=== PATIENT | female | born 1985 | race Caucasian/White ===

== ENCOUNTER 2017-10-24 12:19 | Emergency (ER) | payer OTHER ==
[~2017-10-24] VITALS: Ht 165.1 cm; Wt 62.0 kg
[2017-10-24 12:22] VITALS: BP 105/60
[2017-10-24] MEDS ORDERED: IBUPROFEN 600MG TABLET PO ONE (12:45)
== END 2017-10-24 12:46 | disposition left against medical advice (07) ==
LOC: ER 12:19
DX: R42 Dizziness and giddiness (principal); R00.1 Bradycardia, unspecified
CPT/HCPCS: 93005; 99283